=== PATIENT | female | born 1950 | race Caucasian/White ===

== ENCOUNTER → 2021-11-13 | Outpatient (CLI) | payer OTHER ==
[~2021-11-13] MED LIST: CITA20 PO; IODPOTL TOP
== END | disposition home or self-care (01) ==
LOC: PLD 08:00 → LAB SHORT 08:00
DX: D04.5 Carcinoma in situ of skin of trunk (principal); L81.4 Other melanin hyperpigmentation
CPT/HCPCS: 88305